=== PATIENT | female | born 1990 | race Hispanic/Latino ===

== ENCOUNTER 2017-05-23 13:55 | Inpatient (IN) | payer MEDICAID ==
--- NOTE | 2017-05-23 14:11 | ED PDOC ---
HPI: General Adult Time Seen by Provider: 05/23/17 14:10 Chief Complaint (Nursing): Dizziness/Lightheaded Chief Complaint (Provider): substance abuse History Per: Patient Additional Complaint(s): 26-year-old female with history of IV heroin abuse presents to emergency department with generalized malaise. Patient admits to using IV heroin this morning. She also states she is feeling depressed and has a history of schizophrenia and has not been on her medications for several months. Patient is originally from [place] and states that 2 months ago she went to a detox program in [place] but has since relapsed. She is currently non- domiciled. When asked if she is having thoughts of wanting to harm herself, she stated, "well I shoot heroin, don't I?" Patient also is concerned about possible infection to right thumb. Patient has noticed some purulent discharge and swelling from the cuticle region and states, "I think I have a staph infection." Past Medical History Reviewed: Historical Data, Nursing Documentation, Vital Signs Vital Signs: Last Vital Signs Temp 99.0 F 05/23/17 14:39 Pulse 110 H 05/23/17 13:57 Resp 18 05/23/17 13:57 BP 122/71 05/23/17 13:57 Pulse Ox 98 05/23/17 16:35 - Medical History PMH: No Chronic Diseases - Family History Family History: States: No Known Family Hx - Living Arrangements Living Arrangements: Other (non-domiciled) - Social History Drugs: Opiates (IV heroin) - Home Medications Home Medications: Ambulatory Orders Medication Instructions Recorded Aripiprazole [Abilify] 20 mg PO DAILY 05/23/17 Buprenorphine HCl/Naloxone HCl 1 film SL BID 05/23/17 [Suboxone 8 mg-2 mg Sl Film] clonazePAM [Klonopin] 0.5 mg PO BID 05/23/17 - Allergies Allergies/Adverse Reactions: Allergies Allergy/AdvReac Type Severity Reaction Status Date / Time No Known Allergies Allergy Verified 05/23/17 13:57 Review of Systems ROS Statement: Except As Marked, All Systems Reviewed And Found Negative Constitutional: Negative for: Fever Cardiovascular: Negative for: Chest Pain Respiratory: Negative for: Cough Gastrointestinal: Negative for: Nausea, Vomiting Musculoskeletal: Positive for: Other (possible right thumb infection) Psych: Positive for: Other (Iv heroin abuse, depression) Physical Exam - Reviewed Nursing Documentation Reviewed: Yes Vital Signs Reviewed: Yes - Physical Exam Appears: Negative for: Well (unkempt appearing) Eye Exam: Positive for: Normal appearance, EOMI, PERRL Cardiovascular/Chest: Positive for: Regular Rate, Rhythm Respiratory: Positive for: Normal Breath Sounds Extremity: Positive for: Normal ROM, Other (Indurated, non-fluctuanct paronychia to right thumb with localized erythema and tenderness, no erythematous streaking, no diffuse cellulitis). Negative for: Pedal Edema Neurologic/Psych: Positive for: Alert, Oriented, Mood/Affect (flat) - Laboratory Results Result Diagrams: 05/23/17 14:58 05/23/17 14:58 Urine POC: Negative Urine dip results: Negative for: Leukocyte Esterase, Blood, Nitrate, Ketones, Glucose, Bilirubin, Protein - ECG Interpretation Of ECG: NSR 97 bpm, no acute finding, reviewed by PA and ED attending. O2 Sat by Pulse Oximetry: 98 Pulse Ox Interpretation: Normal Medical Decision Making Medical Decision Makin26 year old with IV heroin abuse Plan: CBC CMP BAL UDS UA 1:1 observation Crisis eval IM zofran Initial dose clindamycin 300 mg PO given for paronychia of left thumb. As per crisis counselor and psychiatrist buyer liaison, Dr. Traylor, patient does meet criteria for admission. Patient agrees to stay and signed herself in. Clindamycin 300 mg q8h ordered for patient to receive while admitted for paronychia. Patient is medically stable for psychiatric admission. Disposition - Clinical Impression Clinical Impression: Depression, Finger infection - Patient ED Disposition Is Patient to be Admitted: No - Disposition Disposition Time: 16:29 Condition: FAIR Forms: [employer] ([place]ian) - Pt Status Changed To: Hospital Disposition Of: Inpatient - Admit Certification Admit to Inpatient:: After my assessment, the patient will require hospitalization for at least two midnights. This is because of the severity of symptoms shown, intensity of services needed, and/or the medical risk in this patient being treated as an outpatient. - POA Present On Arrival: None Results - Lab Results Lab Results: 05/23/17 05/23/17 05/23/17 15:30 15:30 14:58 WBC 15.1 H RBC 4.37 Hgb 12.2 Hct 36.6 MCV 83.8 MCH 27.9 MCHC 33.3 RDW 13.1 Plt Count 200 MPV 8.5 Neut % (Auto) 89.5 H Lymph % (Auto) 3.7 L [place] % (Auto) 6.6 Eos % (Auto) 0.1 Baso % (Auto) 0.1 Neut # 13.5 H Lymph # 0.6 L [place] # 1.0 H Eos # 0.0 Baso # 0.0 Neutrophils % (Manual) 85 H Lymphocytes % (Manual) 6 L Monocytes % (Manual) 9 Platelet Estimate Normal Large Platelets Present RBC Morphology Normal Anisocytosis (manual) Slight Sodium Potassium Chloride Carbon Dioxide Anion Gap BUN Creatinine Est GFR ( Amer) Est GFR (Non-Af Amer) Random Glucose Calcium Total Bilirubin AST ALT Alkaline Phosphatase Total Protein Albumin Globulin Albumin/Globulin Ratio Urine Color Straw Urine Clarity Clear Urine pH 6.0 Ur Specific [place] 1.006 Urine Protein Negative Urine Glucose (UA) Neg Urine Ketones Negative Urine Blood Negative Urine Nitrate Negative Urine Bilirubin Negative Urine Urobilinogen 0.2-1.0 Ur Leukocyte Esterase Neg Urine RBC (Auto) 2 Urine Microscopic WBC < 1 Ur Squamous Epith Cells 1 Urine Bacteria Rare Urine Opiates Screen Positive H Urine Methadone Screen Negative Ur Barbiturates Screen Negative Ur Phencyclidine Scrn Negative Ur Amphetamines Screen Negative U Benzodiazepines Scrn Negative U Oth Cocaine Metabols Positive H U Cannabinoids Screen Negative Alcohol, Quantitative 05/23/17 14:58 WBC RBC Hgb Hct MCV MCH MCHC RDW Plt Count MPV Neut % (Auto) Lymph % (Auto) [place] % (Auto) Eos % (Auto) Baso % (Auto) Neut # Lymph # [place] # Eos # Baso # Neutrophils % (Manual) Lymphocytes % (Manual) Monocytes % (Manual) Platelet Estimate Large Platelets RBC Morphology Anisocytosis (manual) Sodium 131 L Potassium 3.5 L Chloride 100 Carbon Dioxide 23 Anion Gap 12 BUN 14 Creatinine 0.6 L Est GFR ( Amer) > 60 Est GFR (Non-Af Amer) > 60 Random Glucose 123 H Calcium 8.9 Total Bilirubin 0.6 AST 29 ALT 43 Alkaline Phosphatase 48 Total Protein 6.9 Albumin 4.0 Globulin 3.0 Albumin/Globulin Ratio 1.3 Urine Color Urine Clarity Urine pH Ur Specific [place] Urine Protein Urine Glucose (UA) Urine Ketones Urine Blood Urine Nitrate Urine Bilirubin Urine Urobilinogen Ur Leukocyte Esterase Urine RBC (Auto) Urine Microscopic WBC Ur Squamous Epith Cells Urine Bacteria Urine Opiates Screen Urine Methadone Screen Ur Barbiturates Screen Ur Phencyclidine Scrn Ur Amphetamines Screen U Benzodiazepines Scrn U Oth Cocaine Metabols U Cannabinoids Screen Alcohol, Quantitative < 10
[2017-05-23 15:08] LABS: BASO % 0.1 % (0.0-2.0); EOS % 0.1 % (0.0-4.0); HEMATOCRIT 36.6 % (34.0-47.0); LYMPH # 0.6 K/uL (1.0-4.3); LYMPH % 3.7 % (20.0-40.0); MEAN CELL VOLUME 83.8 fl (81.0-99.0); MEAN CORPUSCULAR HEMOGLOBIN 27.9 pg (27.0-31.0); MEAN CORPUSCULAR HGB CONC 33.3 g/dL (33.0-37.0); MEAN PLATELET VOLUME 8.5 fl (7.2-11.7); MONO % 6.6 % (0.0-10.0); NEUT # 13.5 K/uL (1.8-7.0); NEUT % 89.5 % (50.0-75.0); NRBC % 0.1 % (0.0-0.0); PLATELET COUNT 200 K/uL (130-400); RED CELL DISTRIBUTION WIDTH 13.1 % (11.5-14.5); WHITE BLOOD COUNT 15.1 K/uL (4.8-10.8)
[2017-05-23 15:20] LABS: CHLORIDE 100 mmol/L (98-107); POTASSIUM 3.5 MMOL/L (3.6-5.0); SODIUM 131 mmol/l (132-148)
[2017-05-23 15:22] LABS: GFR AFRICAN-AMERICAN > 60
[2017-05-23 15:23] LABS: ALB/GLOB RATIO 1.3 (1.0-2.1); ALKALINE PHOSPHATASE 48 U/L (38-126); ALT/SGPT 43 U/L (9-52); AST/SGOT 29 U/L (14-36); BILIRUBIN,TOTAL 0.6 mg/dl (0.2-1.3); BLOOD UREA NITROGEN 14 mg/dl (7-17); CALCIUM 8.9 mg/dL (8.4-10.2); CARBON DIOXIDE 23 mmol/L (22-30); GLUCOSE,RANDOM 123 mg/dL (65-105); TOTAL PROTEIN 6.9 G/DL (6.3-8.2)
[2017-05-23 15:24] LABS: ALCOHOL SERUM < 10 mg/dl (0-10)
[2017-05-23 15:54] LABS: LARGE PLATELETS PRESENT; NEUTROPHIL 85 % (42-75); TOTAL CELLS COUNTED 100
[2017-05-23 16:04] LABS: RBC URINE 2 /hpf (0-3); URINE BACTERIA RARE (<OCC); URINE BILIRUBIN NEGATIVE (NEGATIVE); URINE BLOOD NEGATIVE (NEGATIVE); URINE COLOR STRAW (YELLOW); URINE GLUCOSE (UA) NEG (Normal); URINE KETONE NEGATIVE (NEGATIVE); URINE LEUKOCYTE ESTERASE NEG Leu/uL (Negative); URINE PROTEIN NEGATIVE (NEGATIVE); URINE UROBILINOGEN 0.2-1.0 mg/dL (0.2-1.0); WBC URINE < 1 /hpf (0-5)
--- NOTE | 2017-05-23 16:15 | RAD ---
HISTORY: clearance COMPARISON: No prior. FINDINGS: LUNGS: No active pulmonary disease. PLEURA: No significant pleural effusion identified, no pneumothorax apparent. CARDIOVASCULAR: Normal. OSSEOUS STRUCTURES: No significant abnormalities. VISUALIZED UPPER ABDOMEN: Normal. OTHER FINDINGS: None. IMPRESSION: No active disease.
[2017-05-23 21:52] VITALS: O2SAT 98
[2017-05-24] MEDS ORDERED: Alum-Mag Hydrox-Simethicone Susp (30 mL) PO PRN (00:16)
[2017-05-24] MEDS ORDERED: Magnesium Hydroxide Susp 30 ml UD PO PRN (00:16)
[2017-05-24] MEDS ORDERED: DiphenhydrAMINE 50 mg/ml Inj IM PRN (00:16)
--- NOTE | 2017-05-24 07:22 | CP.PCM.CON ---
History of Present Illness - History of Present Illness History of Present Illness: Attending: Dr Traylor Reason for consultation: Management of Lightheadedness and Paronychia Chief complaint: Depression and lightheadeness HPI: The hx is obtained from the patient and the medical records as she refuses to answer most questions. 26 years old female originally from [address], has hx of IV Heroin abuse and depression. She comes to the Ed with Lightheadedness. dizziness, feeling depressed, generalized malaise and admitting using IV on the same day. She had not taken her medication for several months. she referred some purulent discharge from the right thumb and thinks that it is infected. No fever, nausea, vomits. PMH: No chronic disease Past Psychiatric hx: Bipolar and Schizophrenia PSH: No Surgical Hx SH: IV Heroine abuse; Alcohol socially, Current Smoker FH: No known family Hx Review of Systems - Review of Systems Review of Systems: Review of systems is limited as patient refuses to answer questions. Past Patient History - Past Medical History & Family History Past Medical History?: No - Past Social History Smoking Status: Light Smoker < 10 Cigarettes Daily Chewing Tobacco Use: No Cigar Use: No Drugs: Opiates (IV heroin) - CARDIAC Hx Cardiac Disorders: No - PULMONARY Hx Respiratory Disorders: No Hx Tuberculosis: No - NEUROLOGICAL Hx Neurological Disorder: No HX Cerebrovascular Accident: No Hx Seizures: No - HEENT Hx HEENT Problems: No - RENAL Hx Chronic Kidney Disease: No - ENDOCRINE/METABOLIC Hx Endocrine Disorders: No - HEMATOLOGICAL/ONCOLOGICAL Hx Blood Disorders: No Hx Cancer: No Hx Human Immunodeficiency Virus (HIV): No - INTEGUMENTARY Hx Dermatological Problems: No - MUSCULOSKELETAL/RHEUMATOLOGICAL Hx Musculoskeletal Disorders: No - GASTROINTESTINAL Hx Gastrointestinal Disorders: No - GENITOURINARY/GYNECOLOGICAL Hx Genitourinary Disorders: No Hx Sexually Transmitted Disorders: No - PSYCHIATRIC Hx Bipolar Disorder: Yes Hx Schizophrenia: Yes Hx Substance Use: No - SURGICAL HISTORY Hx Surgeries: No - ANESTHESIA Hx Anesthesia: No Meds Allergies/Adverse Reactions: Allergies Allergy/AdvReac Type Severity Reaction Status Date / Time No Known Allergies Allergy Verified 05/23/17 13:57 - Medications Medications: Current Medications Acetaminophen (Tylenol 325mg Tab) 650 mg PO Q4 PRN PRN Reason: pain level 1 to 7 Al Hydrox/Mg Hydrox/Simethicone (Maalox Plus 30 Ml) 30 ml PO Q4 PRN PRN Reason: Dyspepsia Clindamycin HCl (Cleocin) 300 mg PO Q8 CJ Diphenhydramine HCl (Benadryl) 50 mg IM Q6 PRN PRN Reason: Extrapyramidal S/S Unable PO Diphenhydramine HCl (Benadryl) 50 mg PO Q6 PRN PRN Reason: Extrapyramidal Symptoms Haloperidol (Haldol) 5 mg PO Q4 PRN PRN Reason: Agitation Haloperidol Lactate (Haldol) 5 mg IM Q4 PRN PRN Reason: Agitation, Unable to Take PO Lorazepam (Ativan) 2 mg IM Q4 PRN PRN Reason: Anxiety/Agitation,Unable PO Lorazepam (Ativan) 2 mg PO Q4 PRN PRN Reason: Anxiety/Agitation Magnesium Hydroxide (Milk Of Magnesia) 30 ml PO HS PRN PRN Reason: Constipation Physical Exam - Constitutional Appears: No Acute Distress - Head Exam Head Exam: ATRAUMATIC, NORMAL INSPECTION, NORMOCEPHALIC - Eye Exam Eye Exam: EOMI, Normal appearance Pupil Exam: NORMAL ACCOMODATION, PERRL - ENT Exam ENT Exam: Normal Exam, Normal External Ear Exam, Normal Oropharynx - Neck Exam Neck exam: Positive for: Normal Inspection. Negative for: Lymphadenopathy, Tenderness - Respiratory Exam Respiratory Exam: Clear to Auscultation Bilateral. absent: Rales, Rhonchi, Wheezes - Cardiovascular Exam Cardiovascular Exam: REGULAR RHYTHM, +S1, +S2 - GI/Abdominal Exam GI & Abdominal Exam: Normal Bowel Sounds, Soft. absent: Mass, Organomegaly - Rectal Exam Rectal Exam: Deferred - Extremities Exam Extremities exam: Positive for: normal inspection. Negative for: calf tenderness, pedal edema - Back Exam Back exam: NORMAL INSPECTION. absent: CVA tenderness (L), CVA tenderness (R) - Neurological Exam Neurological exam: Alert, CN II-XII Intact, Oriented x3, Reflexes Normal - Psychiatric Exam Psychiatric exam: Flat Affect - Skin Skin Exam: Dry, Intact, Normal Color, Warm Results - Vital Signs Recent Vital Signs: Last Vital Signs Temp 98.2 F 05/23/17 21:51 Pulse 66 05/23/17 21:51 Resp 18 05/23/17 21:51 BP 100/61 05/23/17 21:51 Pulse Ox 98 05/23/17 21:51 - Labs Result Diagrams: 05/23/17 14:58 05/23/17 14:58 - Imaging and Cardiology Chest x-ray Status: Image reviewed by me, Report reviewed by me Additional comment: No Infiltrates Assessment & Plan - Assessment and Plan (Free Text) Assessment: #. Depression #. Paronychia #. Drug abuse with Heroin #. Hypokalemia #. Hyponatremia #. Leokocytosis Plan: 26 years old female with hx of IV Heroin abuse and depression, comes with Lightheadedness, dizziness, feeling depressed, generalized malaise and admitting using IV on the same day. She had not taken her medication for several months. she referred some purulent discharge from the right thumb. #. Depression - Psychiatric management #. Paronychia of the right thumb - Clonidine 300mg Oral Q8H #. Drug abuse with Heroin and Cocaine -Withdrawal precaution - Ativan for agitation #. Hypokalemia - Replace Potassium #. Hyponatremia - Follow Electrolytes #. Leokocytosis - Follow WBC #. Code Status: Full - Date & Time Date: 05/24/17 Time: 07:22
[2017-05-24] MEDS ORDERED: Potassium Chloride 20 mEq ER Tab PO ONE (10:13)
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
--- NOTE | 2017-05-25 11:22 | PCM.PYCHPN ---
Psychiatric Progress Note - Psychiatric Progress Note Patient seen today, length of contact: discussed with team Patient Chief Complaint: go away Problems Identified/Issues Discussed: pt seeking ativan frequently. states she needs more abilify. she is avoiding eye contact and is laying in bed and refusing to speak to this auto service writer beyond a few words. Medication Change: Yes (inc abilify) Medical Record Reviewed: Yes Mental Status Examination - Cognitive Function Orientation: Person, Place, Situation Memory: Intact Attention: WNL Concentration: WNL Association: WNL Fund of Knowledge: WN Decription of patient's judgement and insights: fair - Mood Mood: Depressed, Anxious - Affect Affect: Blunted - Speech Speech: Soft (only very brief answers) - Formal Thought Process Formal Thought Process: Hallucinations, Loosening of associations Psychotic Thoughts and Behaviors: ? auditory hallucinations - Suicidal Ideation Suicidal Ideation: No - Homicidal Ideation Homicidal Ideation: No Goal/Treatment Plan - Goal/Treatment Plan Need for Continued Stay: Remain at risks for inpatient hospitalization, Severe functional impairment Progress Toward Problem(s) and Goals/Treatment Plan: schizoffective disorder polysubstance dependence pt needs further treatment and stabilization will tirate up the abilify will start to lower ativan prn encourage participation in groups disposition planning Estimated Date of D/C: 05/31/17
--- NOTE | 2017-05-26 08:48 | PCM.PYCHPN ---
Psychiatric Progress Note - Psychiatric Progress Note Patient seen today, length of contact: discussed with team Patient Chief Complaint: pt still feels anxious and still delusional and still feels air is toxic.pt denies any shakes and still c/ o diarrhoea.pt remains with poor insight and poor judgement pt is requesting to be d/c and wrote a 48 hour letter DSM 5 Symptoms Update: schizoaffective disorder opiate dependence Medication Change: Yes (inc abilify) Medical Record Reviewed: Yes Mental Status Examination - Cognitive Function Orientation: Person, Place, Situation Memory: Intact Attention: WNL Concentration: WNL Association: WNL Fund of Knowledge: [facility] - Mood Mood: Depressed, Anxious - Affect Affect: Blunted - Speech Speech: Soft (only very brief answers) - Formal Thought Process Formal Thought Process: Hallucinations, Loosening of associations - Suicidal Ideation Suicidal Ideation: No - Homicidal Ideation Homicidal Ideation: No Goal/Treatment Plan - Goal/Treatment Plan Need for Continued Stay: Remain at risks for inpatient hospitalization, Severe depression anxiety, Severe functional impairment Progress Toward Problem(s) and Goals/Treatment Plan: will continue to stabilize pt by titrating abilify abd engage pt in therapy and discourage meds seeking behavior Estimated Date of D/C: 05/31/17
--- NOTE | 2017-05-27 15:03 | PCM.PYCHPN ---
Psychiatric Progress Note - Psychiatric Progress Note Patient seen today, length of contact: discussed with team Patient Chief Complaint: pt still feels anxious and still delusional and still feels air is toxic.pt denies any shakes and still c/ o diarrhoea.pt remains with poor insight and poor judgement pt is requesting to be d/c and wrote a 48 hour letter .pt has racing thoughts and makes her anxious Problems Identified/Issues Discussed: admited for overt psychosis with paranoid delusion. DSM 5 Symptoms Update: schizoaffective disorder Medication Change: Yes (increase seroquel to 75 mg hs ) Medical Record Reviewed: Yes Mental Status Examination - Cognitive Function Orientation: Person, Place, Situation Memory: Intact Attention: WNL Concentration: WNL Association: WNL Fund of Knowledge: WNL - Mood Mood: Depressed, Anxious - Affect Affect: Blunted - Speech Speech: Soft (only very brief answers) - Formal Thought Process Formal Thought Process: Hallucinations, Loosening of associations - Suicidal Ideation Suicidal Ideation: No - Homicidal Ideation Homicidal Ideation: No Goal/Treatment Plan - Goal/Treatment Plan Need for Continued Stay: Remain at risks for inpatient hospitalization, Severe depression anxiety, Severe functional impairment Progress Toward Problem(s) and Goals/Treatment Plan: will continue to stabilize pt by titrating abilify and engage pt in therapy and discourage meds seeking behavior . yandy increase seroquel to 75mg hs to address racing thoughts and severe anxiety. Estimated Date of D/C: 05/31/17
[2017-05-27 17:10] VITALS: RESP 20; TEMP 97.5
[2017-05-28 08:56] VITALS: BP 124/74
[2017-05-28 09:07] VITALS: PULSE 102
--- NOTE | 2017-05-28 10:03 | PCM.PYCHDC ---
Mental Status Examination - Mental Status Examination Orientation: Person, Place, Situation, Time Memory: Intact Mood: Anxious (anxious about discharge) Affect: Broad Speech: Appropriate Attention: WNL Concentration: WNL Association: WNL Fund of Knowledge: WNL Formal Thought Process: Loosening of associations Description of patient's judgement and insight: superficial insight Psychotic Thoughts and Behaviors: disorganized, paranoid Suicidal Ideation: No Current Homicidal Ideation?: No Plan: pt denies any suicidal or homicidal thoughts Discharge Summary - Discharge Note Reason for Hospitalization: pt non-adherent with treatment, seeking help with housing per her report. Psychiatric History (includes Medical, Family, Personal Hx): history of schizoaffective and polysubstance dependence Consultations:: List each consultation separately and include: 1. Reason for request. 2. Findings. 3. Follow-up Consultations: seen by the hospitalist Summary of Hospital Course include:: 1. Description of specific treatment plan utilized for patients during their course of treatmen. 2. Summarize the time- course for resolution of acute symptoms and/or regressed behaviors. 3. Describe issues identified and worked on during hospitalization. 4. Describe medication utilized. 5. Describe medical problems identified and treated. 6. Reassessment of suicide risk Summary of Hospital Course: pt is a homeless 26 yo female dx with schizoaffective disorder as well as cocaine, alcohol and opioid dependence issues. she states she lives in [place] for the last 10 years and is homeless. she was in [place] to visit "friends" she states she is too anxious to talk now, but is able to give some brief history of being dx with schizoaffective disorder, having her insurance lapse and stopping taking her medications. she reports she takes abilify and seroquel as well as klonopin. she reports drinking a pint of vodka daily as well as using cocaine and prescription opioids. she is not willing to give any more information at this time. apparently she has some legal problems and is chronically non-adherent to medications. apparently dx with schizoaffective about 4 years ago. hospital course pt was admitted to [facility] and oriented to the unit. pt was placed on routine safety protocols. pt was started on her home medications. she was initially isolative and not speaking with the treatment team, although she was taking her medications. she was stating she only wanted help with housing and asked to leave when told that the hospital does not provide housing. at the time of discharge, pt was denying any suicidal or homicidal thoughts. she was stating she was following up with her usual providers. - Final Diagnosis (DSM 5) Condition upon Discharge: FAIR DSM 5: schizoaffective disorder polysubstance dependence Disposition: HOME/ ROUTINE Follow-up Treatment Plan: follow up with aftercare as directed take medications as prescribed do not use alcohol, tobacco or other illicit substances call 911 if any suicidal or homicidal thoughts attend AA meetings daily Prescriptions/Medication Reconciliation: Aripiprazole [Abilify] 20 mg PO DAILY #15 tablet clonazePAM [Klonopin] 1 mg PO AMHS #15 tab cloNIDine [Catapres] 0.1 mg PO BID #30 tab QUEtiapine [Seroquel] 100 mg PO HS #15 tab - Smoking Cessation Smoking Cessation Medication prescribed: No - Antipsychotic Medications Pt discharged on 2 or more routine antipsychotic medications: Yes - Justification for 2 or more meds Plan to taper monotherapy: List medications: this is pt's home medication treatment and providers can taper to one agent
== END 2017-05-28 10:30 | disposition home or self-care (01) | DRG 430 ==
LOC: H.ER 13:55 → H.ERHOLD 16:46 → H.PSYCH 21:58
PROVIDERS: ADMIT Psychiatry & Neurology Psychiatry; ATTEND Psychiatry & Neurology Psychiatry
PROC: GZHZZZZ Group Psychotherapy (ICD-10-PCS; principal; 2017-05-23)
PROC: GZ58ZZZ Individual Psychotherapy, Cognitive-Behavioral (ICD-10-PCS; 2017-05-23)
DX: F25.9 Schizoaffective disorder, unspecified (principal); E87.1 Hypo-osmolality and hyponatremia; F11.20 Opioid dependence, uncomplicated; F14.20 Cocaine dependence, uncomplicated; E87.6 Hypokalemia; L03.011 Cellulitis of right finger; F31.9 Bipolar disorder, unspecified; Z91.14 Patient's other noncompliance with medication regimen; D72.829 Elevated white blood cell count, unspecified; F17.210 Nicotine dependence, cigarettes, uncomplicated; Z59.0 Homelessness